=== PATIENT | female | born 1975 | race Caucasian/White ===

== ENCOUNTER 2020-06-26 19:22 | Emergency (ER) | payer OTHER ==
[~2020-06-26] VITALS: Ht 175.3 cm; Wt 86.3 kg
[2020-06-26 19:32] VITALS: BP 132/80
--- NOTE | 2020-06-26 19:43 | NUR ---
pt laying on gurney in room. she has her cell phone on speaker with the volume all the way up and is speaking loudly. no distress noted.
--- NOTE | 2020-06-26 21:33 | NUR ---
Pt currently stable vs and with no return of symptoms. Per NATALI Garza, she attempted to updated ER MD Dr. Renner, but was unable d/t Md in midst of critical patient care. She then updated [employer] Jemal, who requested we order proparicane at bedside and do a visual acuity check. Pricila HURST , [place], also updated of above.
[2020-06-26] MEDS ORDERED: proparacaine 0.5% ophthalmic drops 15ml EACHEYE ONE (21:40)
--- NOTE | 2020-06-26 21:51 | NUR ---
pt uncertian of she shoud stay here, states her spouse wanted her to come in as he is an optomitrist and was concerned of this being a stroke like event or TIA. I requeste pt to wait while i check with providers when she may be seen. She is agreeable.
--- NOTE | 2020-06-26 21:55 | NUR ---
Pt spoke with her again and has decided to leave wo being seen. States her can order all of the tests and scans and blood work tomorrow.
== END 2020-06-26 21:57 | disposition left against medical advice (07) ==
LOC: ER 19:24
DX: H53.8 Other visual disturbances (principal); R51 Headache; Z53.21 Procedure and treatment not carried out due to patient leaving prior to being seen by health care provider